=== PATIENT | female | born 1985 | race Caucasian/White ===

== ENCOUNTER → 2017-01-02 | Outpatient (CLI) | payer OTHER ==
[~2017-01-02] MED LIST: ACET-1311 PO; FLX10 PO; IBUP-1050 PO; LRT5 PO; PRENATA2 OR
--- NOTE | 2017-01-02 08:11 | DIAGNOSTIC IMAGING REPORT ---
FUSION CT SINUSES W/O CLINICAL HISTORY: 31 years-old Female presenting with J32.9 Chronic sinusitisPATIENT WITH RIGHT SEPTAL DEVIATION, LEFT. TECHNIQUE: Multidetector CT of the sinuses was performed without the use of intravenous contrast. IV contrast: None. A dose lowering technique was used consistent with the principles of ALARA (as low as reasonably achievable). COMPARISON: None. CT DOSE (mGy.cm): The estimated cumulative dose is 641.80 mGy.cm. FINDINGS: [employer] topogram: Unremarkable. Near-complete opacification of the left maxillary sinus. Mild mucosal thickening in the right maxillary sinus. Scattered mucosal thickening in anterior ethmoid air cells. Frontal and sphenoid sinuses largely clear. Mastoid air cells clear. No apparent sclerosis of the richardson of the maxillary sinuses to suggest chronic bony changes of sinusitis. No osseous erosion. Ostiomeatal units patent bilaterally, although mucosal thickening approaches the left ostiomeatal unit. Karuna bullosa of the middle turbinate noted on the left. Nasofrontal ethmoidal recesses narrowed by mucosal thickening in the ethmoid air cells. No bony dehiscence of the optic canals. Apparent thickening of the bilateral tympanic membranes. IMPRESSION: 1. Significant mucosal thickening most prominently in the left maxillary sinus and additional sinuses as above. No convincing evidence of acute or chronic sinusitis on the current exam. Minimal anatomic variants as above. Electronically signed by: Oni Castillo M.D. 01/02/2017 8:10 AM Dictated Date/Time: 01/02/2017 7:34 AM
== END | disposition home or self-care (01) ==
LOC: C.CTS 07:12
DX: J32.9 Chronic sinusitis, unspecified (principal)

== ENCOUNTER → 2017-03-05 | Outpatient (CLI) | payer OTHER ==
[~2017-03-05] MED LIST changes: -ACET-1311 PO; +EFF/375 PO; -FLX10 PO; -IBUP-1050 PO; +LORA-741 PO; +LORA10TA6 PO; -LRT5 PO; -PRENATA2 OR
[2017-03-05 16:07] LABS: BASO % 0.3 %; BASO ABS # 0.03 K/uL (0-0.2); COMPLETE YES; EOS % 4.7 %; HEMATOCRIT 40.8 % (37-47); IG% 0.2 %; LYMPH ABS # 2.48 K/uL (1.2-3.4); MEAN CELL VOLUME 86.3 fL (80-100); MEAN CORPUSCULAR HEMOGLOBIN 29.4 pg (25-34); MEAN CORPUSCULAR HGB CONC 34.1 g/dl (32-36); MEAN PLATELET VOLUME 9.9 fL (7.4-10.4); NEUT % 63.8 %; PLATELET COUNT 327 K/uL (130-400); RED BLOOD COUNT 4.73 M/uL (4.2-5.4); WHITE BLOOD COUNT 10.35 K/uL (4.8-10.8)
[2017-03-05 16:32] LABS: INR 0.9 (0.9-1.1); PROTHROMBIN TIME (PATIENT) 9.6 SECONDS (9.0-12.0)
[2017-03-05 16:44] LABS: POTASSIUM 3.6 mmol/L (3.5-5.1)
== END | disposition home or self-care (01) ==
LOC: C.LAB 15:23
DX: Z01.818 Encounter for other preprocedural examination (principal)

== ENCOUNTER → 2017-03-11 | Day surgery (SDC) | payer OTHER ==
[2017-02-22 08:54] VITALS: Ht 157.5 cm; Wt 81.8 kg
[~2017-03-11] VITALS: Ht 157.5 cm; Wt 81.8 kg
[~2017-03-11] MED LIST changes: +ATROPINE SULFATE 0.1 MG/ML 5ML SYR IV PRN; +CEFAZOLIN 2000MG IV PUSH 10 ML IV SCH; +DEXAMETHASONE SOD INJ 4 MG/ML VIAL ONE; +EpINEphrine INJ 1MG/ML AMP 1 MG/ML AMP ONE; +FENTANYL CITRATE INJ 50 MCG/1 ML 2 ML VIAL IV PRN; +FENTANYL CITRATE INJ 50 MCG/1 ML 2 ML VIAL ONE; +GLYCOPYRROLATE INJ 0.2 MG/ML VIAL ONE; +HYDROCODONE/ACETAMOPHEN 5/325MG TAB PO PRN; +LIDOCAINE 4% MPF SOAK 5 ML = 1 DOSE TOP ONE; +LIDOCAINE HCL 2% 2 ML VIAL (20MG/ML) ONE; +LIDOCAINE/EPINEPHRINE 1% INJ 50 ML VIAL ONE; +MIDAZOLAM HCL 1 MG/ML 2ML VIAL ONE; +NEOSTIGMINE METHYLSULFATE 5 MG/5 ML SYR ONE; +ONDANSETRON INJ 2 MG/ML 2 ML VIAL IV PRN; +ONDANSETRON INJ 2 MG/ML 2 ML VIAL ONE; +OXYMETAZOLINE HCL 0.05% NA SPR 15 ML BTL PRN; +OXYMETAZOLINE HCL 0.05% NA SPR 15 ML BTL SCH; +PROMETHAZINE HCL INJ 25 MG/ML 1 ML VIAL ONE; +PROMETHAZINE HCL INJ 6.25 MG in SODIUM CHLORIDE 0.9% 50ML 50 ML IV PRN; +PROPOFOL IV EMULSION 10 MG/ML 20 ML VIAL IV ONE; +SCOPOLAMINE 1.5 MG TDSY TD ONE
[2017-03-11] MEDS: LACTATED RINGER'S 1000ML 1,000 ML IV SCH ×2 (09:20→12:33)
--- NOTE | 2017-03-11 11:09 | History and Physical: Surg Cnt ---
History & Physical Date Mar 11, 2017. Chief Complaint CHRONIC SINUSITIS, SEPTAL DEVIATION, BILATERAL INFERIOR TURBINATE HYPERTROPHY History of Present Illness The patient is a 32 year old female with complaints of CHRONIC SINUSITIS, SEPTAL DEVIATION, BILATERAL INFERIOR TURBINATE HYPERTROPHY WITH SYMPTOMS DESPITE MAXIMAL MEDICAL THERAPY. Past Medical/Surgical History PMH: ABOVE, RECURRENT UTI'S PSH: S/P WISDOM TEETH EXTRACTION Additional History Hepatic Disease: No Endocrine Disorder: No Kidney Disease: No Hypertension: No Heart Disease: No Bleeding Tendencies: No Infectious Diseases: No Allergies Coded Allergies: Nickel (Verified Allergy, Unknown, SKIN IRRITATION WITH REDNESS AND ITCHING, 03/11/17) Sulfa Antibiotics (Verified Allergy, Unknown, FACIAL AND TONGUE SWELLING, 03/11/17) Home Medications Scheduled Loratadine (Claritin), 10 MG PO QPM Venlafaxine Hcl (Effexor), 37.5 MG PO QPM Scheduled PRN Lorazepam (Ativan), 0.5 MG PO Q6H PRN for Anxiety Physical Examination Skin: warm/dry, no rash Eyes: normal inspection, EOMI, sclerae normal ENT: + pertinent finding (MILD R DNS, MODERATE B ITH AND L MTH) Head: normocephalic, atraumatic Neck: supple, no adenopathy, trachea midline Respiratory/Chest: lungs clear, normal breath sounds, no respiratory distress Cardiovascular: regular rate, rhythm, no edema, no murmur Neurologic/Psych: no motor/sensory deficits, alert, normal reflexes, oriented x 3 Diagnosis CHRONIC SINUSITIS, SEPTAL DEVIATION, BILATERAL INFERIOR TURBINATE HYPERTROPHY Plan of Treatment IMAGE-GUIDED BILATERAL FESS AND INFERIOR TURBINATE REDUCTION, POSSIBLE SEPTOPLASTY
--- NOTE | 2017-03-11 12:06 | [facility] Operative Report ---
Operative Report Operative Date Mar 11, 2017. Pre-Operative Diagnosis Chronic Sinusitis, Septal Deviation, Bilateral Inferior Turbinate Hypertrophy Post-Operative Diagnosis same as preop Procedure(s) Performed Image Guided Bilateral Endoscopic Sinus Surgery, Bilateral Inferior Turbinate Reduction Surgeon Dr. Do Insulation Cupola Charger Surgeon(s) none Estimated Blood Loss 20ml Findings 1. VERY MILD RIGHT SEPTAL DEVIATION 2. MEDIUM-SIZED LEFT MARINA BULLOSA 3. LARGE LEFT MAXILLARY SINUS MUCUS RETENTION CYST WITH EXTENSION INTO NASAL CAVITY 4. MUCOSAL THICKENING INVOLVING BILATERAL MAXILLARY AND ETHMOID SINUSES WITH POLYPOID THICKENING OF THE ETHMOIDS Specimens A: Left Maxillary Sinus Contents I attest to the content of the Intraoperative Record and any orders documented therein. Any exceptions are noted below.
--- NOTE | 2017-03-11 12:09 | Discharge Instructions ---
Discharge Instructions Date of Service Mar 11, 2017. Admission Reason for Admission: Chronic Sinusitis, Nasal Septaladeviation, Hypertr Discharge Discharge Diagnosis / Problem: SAME Discharge Goals Goal(s): Therapeutic intervention Activity Recommendations Activity Limitations: as noted below 1. LIGHT ACTIVITY AND NO NOSE BLOWING FOR 2 WEEKS 2. NO DRIVING WHILE ON NORCO . Current Hospital Diet Patient's current hospital diet: Discharge Diet Recommended Diet: Regular Diet Procedures Procedures Performed: Image Guided Bilateral Endoscopic Sinus Surgery, Bilateral Inferior Turbinate Reduction Pending Studies Studies pending at discharge: no Medical Emergencies . Who to Call and When: Medical Emergencies: If at any time you feel your situation is an emergency, please call 911 immediately. . Non-Emergent Contact Non-Emergency issues call your: Surgeon . . "Provider Documentation" section prepared by Elder Do. . VTE Core Measure Inpt VTE Proph given/why not?: SCD's
--- NOTE | 2017-03-11 13:31 | OPERATIVE REPORT ---
DATE OF OPERATION: 03/11/2017 PREOPERATIVE DIAGNOSES: 1. Chronic rhinosinusitis. 2. Bilateral inferior turbinate hypertrophy. POSTOPERATIVE DIAGNOSES: 1. Chronic rhinosinusitis. 2. Bilateral inferior turbinate hypertrophy. PROCEDURES: Image guided bilateral endoscopic sinus surgery consisting of: 1. Left maxillary antrostomy with tissue removal. 2. Right maxillary antrostomy. 3. Bilateral complete ethmoidectomy. 4. Endoscopic left martine bullosa resection. 5. Bilateral inferior turbinate outfracture and turbinoplasty. SURGEON: Dr. Elder Do. ANESTHESIA: General endotracheal. ESTIMATED BLOOD LOSS: 20 mL. FINDINGS: 1. Moderate sized left martine bullosa. 2. Likely left maxillary sinus mucous retention cyst with portion of the cyst/polyp emanating through the maxillary and ostium into the nasal cavity posteriorly. 3. Polypoid mucosal thickening involving the bilateral ethmoid sinuses. 4. Mild mucosal thickening involving the right maxillary sinus. 5. Very mild right septal deviation. 6. Moderate bilateral inferior turbinate hypertrophy. SPECIMENS: Left maxillary sinus contents for permanent pathological assessment. COMPLICATIONS: None. INDICATIONS FOR THE PROCEDURE: The patient is a 32-year-old female with a history of chronic sinusitis which has been unresponsive to maximum medical therapy including systemic antibiotics and steroids. In addition, she states that when she sleeps at night and lying flat, she notices that something within the left nasal cavity will "ball valve" in and out and interfere with her sleep quality and cause nasal airway obstruction. She complains of nasal airway obstruction and has moderate bilateral inferior turbinate hypertrophy, but also a very mild right septal deviation which appears nonobstructive. She presents for the above-mentioned procedure on an outpatient elective basis. DESCRIPTION OF PROCEDURE: After informed consent had been obtained from the patient, the patient was wheeled to the operating room and placed on the operating table in the supine position. Monitors were placed. After induction of general endotracheal anesthesia, the patient was prepped in the usual fashion for endoscopic sinus surgery. The iAdvize headset was placed over the forehead and was registered, verified, and calibrated and used for the throughout the case. Lidocaine and epinephrine pledgets were placed in the bilateral middle meati and pressure applied. The left-sided pledgets were first removed. A 0 degree endoscope was used to inspect the left nasal cavity. There appeared to be a polypoid mass emanating from the left maxillary sinus and extending posteriorly into the nasopharynx. This mass was injected with 1% lidocaine with 1:100,000 epinephrine. The left middle turbinate and lateral nasal wall were also injected. The right middle turbinate and lateral nasal wall were then also injected with 1% lidocaine with 1:100,000 epinephrine. Lidocaine and epinephrine pledgets were placed in the bilateral middle meati. The left side pledgets were removed. A straight Von-Cut forceps was used to remove the nasal cavity portion of the left maxillary sinus mass and this was sent off for permanent pathological assessment. A sickle knife was used to incise the left middle turbinate longitudinally and the lateral half of the middle turbinate was removed using straight Von-Cut forceps and powered instrumentation. An uncinatectomy was then performed using a freer elevator, straight Von-Cut forceps, and powered instrumentation. The patient's left maxillary sinus ostium was then enlarged anteriorly, inferiorly, posteriorly using backbiting forceps and powered instrumentation. There was a large mucous retention cyst that was within the left maxillary sinus, which was removed using a straight Blakesley forceps. This was sent off for permanent pathological assessment. Care was taken to remove all of the cyst wall and contents. A complete ethmoidectomy was then performed using powered instrumentation. Lidocaine and epinephrine pledget was then placed into the left ethmoid cavity. The right side was then addressed. On this side, there was no martine bullosa. Therefore, right maxillary antrostomy and complete ethmoidectomy was performed. There was mild mucosal thickening involving the right maxillary sinus and there was polypoid mucosal thickening involving the bilateral ethmoid sinuses. Sinonasal cavities were then suctioned. Merogel was placed into the bilateral ethmoid sinuses/middle meati. A Parks elevator was then used to infracture and subsequently outfracture the inferior turbinates bilaterally. Inferior turbinates were injected with 1% lidocaine with 1:100,000 epinephrine. A 2.0 mm turbinate blade using powered instrumentation was then used to perform bilateral inferior turbinoplasties in a submucosal fashion. The sinonasal cavities and nasopharynx were then suctioned. An orogastric tube was placed and the stomach was suctioned free of air and stomach contents. This marked the end of the case. The patient tolerated the procedure well. There were no apparent complications. The patient was extubated and transferred to recovery room in stable condition. I attest to the content of the Intraoperative Record and any orders documented therein. Any exception s are noted below.
[2017-03-11 13:47] VITALS: BP 118/65; PULSE 62; TEMP 36.6; O2SAT 98
--- NOTE | 2017-03-11 14:02 | Anesthesia Progress Nt - [facility] ---
Anesthesia Post Op Note Date & Time Mar 11, 2017 at 14:02 Vital Signs Pain Intensity: 0 Vital Signs Past 12 Hours Date Time Temp Pulse Resp B/P (MAP) Pulse Ox O2 Delivery O2 Flow Rate FiO2 03/11/17 13:47 36.6 62 16 118/65 (82) 98 Room Air 03/11/17 13:24 71 16 119/81 (94) 97 Room Air 03/11/17 13:16 111/78 03/11/17 13:15 82 15 03/11/17 13:15 90 15 96 03/11/17 13:13 36.5 67 16 111/78 97 Room Air 03/11/17 13:11 122/72 03/11/17 13:10 62 15 95 03/11/17 13:10 62 15 03/11/17 13:06 119/80 03/11/17 13:05 73 15 96 03/11/17 13:05 72 15 03/11/17 13:01 126/83 03/11/17 13:00 96 25 98 03/11/17 13:00 96 25 03/11/17 12:56 110/71 03/11/17 12:55 69 15 03/11/17 12:55 68 15 94 03/11/17 12:52 119/79 03/11/17 12:50 88 22 93 03/11/17 12:50 88 22 03/11/17 12:46 124/81 03/11/17 12:45 91 14 03/11/17 12:45 91 14 94 03/11/17 12:42 135/64 03/11/17 12:40 76 22 03/11/17 12:40 77 22 97 03/11/17 12:36 118/72 03/11/17 12:35 77 22 98 03/11/17 12:35 77 22 03/11/17 12:31 123/76 03/11/17 12:30 75 25 97 03/11/17 12:30 77 25 03/11/17 12:27 130/92 03/11/17 12:25 97 18 03/11/17 12:25 97 18 98 03/11/17 12:21 137/85 03/11/17 12:20 106 24 97 03/11/17 12:20 106 24 03/11/17 12:16 139/68 03/11/17 12:15 124 98 03/11/17 12:15 124 03/11/17 12:15 36.2 120 16 139/68 98 Mask 6 03/11/17 09:00 36.7 96 20 121/85 (97) 96 Room Air Notes Mental Status: alert / awake / arousable, participated in evaluation Pt Amnestic to Procedure: Yes Nausea / Vomiting: adequately controlled Pain: adequately controlled Airway Patency, RR, SpO2: stable & adequate BP & HR: stable & adequate Hydration State: stable & adequate Anesthetic Complications: no major complications apparent
== END | disposition home or self-care (01) ==
LOC: X.SURG 08:47
DX: J32.9 Chronic sinusitis, unspecified (principal); J34.3 Hypertrophy of nasal turbinates; J34.2 Deviated nasal septum; F32.9 Major depressive disorder, single episode, unspecified; F41.9 Anxiety disorder, unspecified; E66.9 Obesity, unspecified; Z68.32 Body mass index [BMI] 32.0-32.9, adult; Z79.899 Other long term (current) drug therapy

== ENCOUNTER 2017-06-17 11:20 | Emergency (ER) | payer OTHER ==
[~2017-06-17] VITALS: Ht 154.9 cm; Wt 85.8 kg
[~2017-06-17 11:20] MED LIST changes: -ATROPINE SULFATE 0.1 MG/ML 5ML SYR IV PRN; -CEFAZOLIN 2000MG IV PUSH 10 ML IV SCH; -DEXAMETHASONE SOD INJ 4 MG/ML VIAL ONE; -EpINEphrine INJ 1MG/ML AMP 1 MG/ML AMP ONE; -FENTANYL CITRATE INJ 50 MCG/1 ML 2 ML VIAL IV PRN; -FENTANYL CITRATE INJ 50 MCG/1 ML 2 ML VIAL ONE; -GLYCOPYRROLATE INJ 0.2 MG/ML VIAL ONE; -HYDROCODONE/ACETAMOPHEN 5/325MG TAB PO PRN; -LIDOCAINE 4% MPF SOAK 5 ML = 1 DOSE TOP ONE; -LIDOCAINE HCL 2% 2 ML VIAL (20MG/ML) ONE; -LIDOCAINE/EPINEPHRINE 1% INJ 50 ML VIAL ONE; -MIDAZOLAM HCL 1 MG/ML 2ML VIAL ONE; -NEOSTIGMINE METHYLSULFATE 5 MG/5 ML SYR ONE; -ONDANSETRON INJ 2 MG/ML 2 ML VIAL IV PRN; -ONDANSETRON INJ 2 MG/ML 2 ML VIAL ONE; -OXYMETAZOLINE HCL 0.05% NA SPR 15 ML BTL PRN; -OXYMETAZOLINE HCL 0.05% NA SPR 15 ML BTL SCH; -PROMETHAZINE HCL INJ 25 MG/ML 1 ML VIAL ONE; -PROMETHAZINE HCL INJ 6.25 MG in SODIUM CHLORIDE 0.9% 50ML 50 ML IV PRN; -PROPOFOL IV EMULSION 10 MG/ML 20 ML VIAL IV ONE; -SCOPOLAMINE 1.5 MG TDSY TD ONE
[2017-06-17 11:31] VITALS: TEMP 36.7; Ht 154.9 cm; Wt 85.8 kg
[2017-06-17] MEDS ORDERED: SODIUM CHLORIDE 0.9% 1000ML 1,000 ML IV STA (12:31)
[2017-06-17] MEDS ORDERED: LORAZEPAM 2 MG/ML 1 ML VIAL IV STA (12:31)
[2017-06-17 12:41] LABS: BASO % 0.5 %; BASO ABS # 0.04 K/uL (0-0.2); EOS % 6.6 %; EOS ABS # 0.57 K/uL (0-0.5); HEMOGLOBIN 14.6 g/dL (12.0-16.0); IG# 0.04 K/uL (0.00-0.02); LYMPH % 23.2 %; MEAN CELL VOLUME 85.5 fL (80-100); MEAN CORPUSCULAR HEMOGLOBIN 29.7 pg (25-34); MEAN CORPUSCULAR HGB CONC 34.8 g/dl (32-36); MEAN PLATELET VOLUME 10.2 fL (7.4-10.4); MONO % 5.1 %; MONO ABS # 0.44 K/uL (0.11-0.59); NEUT % 64.1 %; NEUT ABS # 5.53 K/uL (1.4-6.5); PLATELET COUNT 384 K/uL (130-400); RED CELL DISTRIBUTION WIDTH CV 12.5 % (11.5-14.5); WHITE BLOOD COUNT 8.62 K/uL (4.8-10.8)
[2017-06-17 12:46] LABS: ALBUMIN 3.8 gm/dl (3.4-5.0); ALT/SGPT 27 U/L (12-78); BLOOD UREA NITROGEN 12 mg/dl (7-18); CALCIUM 8.7 mg/dl (8.5-10.1); CARBON DIOXIDE 25 mmol/L (21-32); CREATININE 0.85 mg/dl (0.60-1.20); GLUCOSE 89 mg/dl (70-99); LIPASE 120 U/L (73-393); POTASSIUM 3.5 mmol/L (3.5-5.1); SODIUM 138 mmol/L (136-145)
[2017-06-17 12:52] LABS: ALKALINE PHOSPHATASE 76 U/L (45-117); AST/SGOT 13 U/L (15-37); CKMB 0.8 ng/ml (0.5-3.6); TOTAL PROTEIN 7.8 gm/dl (6.4-8.2)
--- NOTE | 2017-06-17 12:55 | DIAGNOSTIC IMAGING REPORT ---
CHEST ONE VIEW PORTABLE CLINICAL HISTORY: Chest pain. Chest tightness. COMPARISON STUDY: No previous studies for comparison. FINDINGS: Lung volumes are normal. There is no pneumothorax or pleural effusion. There is no evidence for pulmonary edema. Cardiac size is normal. Mediastinal contours are normal. IMPRESSION: No acute cardiopulmonary findings. Electronically signed by: Mil Roepr M.D. 06/17/2017 12:54 PM Dictated Date/Time: 06/17/2017 12:54 PM
[2017-06-17 13:04] LABS: ISTAT CREATININE 0.8 mg/dl (0.6-1.3); ISTAT IONIZED CALCIUM 1.14 mmol/l (1.12-1.32); ISTAT POTASSIUM 3.5 mEq/L (3.3-5.0)
[2017-06-17 13:14] VITALS: O2SAT 97
[2017-06-17 14:01] VITALS: BP 114/79; PULSE 91; O2SAT 99
--- NOTE | 2017-06-17 14:05 | EMERGENCY ROOM VISIT NOTE ---
History Report prepared by Jose: Bárbara Cerda Under the Supervision of: Dr. Jr Verma M.D. First contact with patient: 12:03 Chief Complaint: CHEST PAIN Stated Complaint: RACING HEART, CHEST TIGHTNESS Nursing Triage Summary: Dull L sided chest pain and SOB since last night, pt states that it is from anxiety, took ativan last night, states that it did not really help, but that she was able to sleep. Pt was working today when chest pain and SOB started again, pt denies taking ativan or anything for pain today. Pt denies SOB at present, denies nausea, diaphoresis, dizziness, syncope last night or today. Pt rating pain as 3/10 and states that it is dull. History of Present Illness The patient is a 32 year old female who presents to the Emergency Room with complaints of persistent chest pain starting last night. She started feeling SOB with chest pain last night. She took Ativan which relieved her SOB. She woke up this morning still having the chest pain. She also had some SOB and palpitations today. She currently does not have any SOB or palpitations. She does have a dull ache in her chest. She denies any abdominal pain. She is not on control. She denies any chance of . She is currently on her period. She denies any chance of a retained tampon. Source of History: patient Onset: last night Position: chest Quality: ache, dull Timing: other (persistent) Associated Symptoms: + SOB, No abdominal pain Note: Pt reports palpitations. Review of Systems See HPI for pertinent positives & negatives. A total of 10 systems reviewed and were otherwise negative. Past Medical & Surgical Medical Problems: (1) Anxiety Family History Cancer Diabetes mellitus Heart disease Hypertension Lung disease Social History Smoking Status: Never Smoker Alcohol Use: occasionally Marital Status: Housing Status: lives with significant other Current/Historical Medications No Active Prescriptions or Reported Meds Allergies Coded Allergies: Nickel (Verified Allergy, Unknown, SKIN IRRITATION WITH REDNESS AND ITCHING, 03/11/17) Sulfa Antibiotics (Verified Allergy, Unknown, FACIAL AND TONGUE SWELLING, 03/11/17) Physical Exam Vital Signs Date Time Temp Pulse Resp B/P (MAP) Pulse Ox O2 Delivery O2 Flow Rate FiO2 06/17/17 14:01 91 14 114/79 99 06/17/17 13:31 94 14 121/74 99 06/17/17 13:14 97 Room Air 06/17/17 13:14 97 Room Air 06/17/17 13:07 90 12 130/80 98 06/17/17 12:59 89 16 119/78 99 06/17/17 12:18 91 06/17/17 11:31 36.7 116 18 130/86 98 Room Air Physical Exam GENERAL: Awake, alert, well-appearing, in no acute distress HENT: Normocephalic, atraumatic. Oropharynx unremarkable. EYES: Normal conjunctiva. Sclera non-icteric. NECK: Supple. No nuchal rigidity. FROM. No JVD. RESPIRATORY: Clear to auscultation. CARDIAC: Regular rate, normal rhythm. Extremities warm and well perfused. Pulses equal. ABDOMEN: Soft, non-distended. No tenderness to palpation. No rebound or guarding. No masses. RECTAL: Deferred. MUSCULOSKELETAL: Chest examination reveals no tenderness. The back is symmetrical on inspection without obvious abnormality. There is no CVA tenderness to palpation. No joint edema. LOWER EXTREMITIES: Calves are equal size bilaterally and non-tender. No edema. No discoloration. NEURO: Normal sensorium. No sensory or motor deficits noted. SKIN: No rash or jaundice noted. Medical Decision & Procedures ER Provider Diagnostic Interpretation: X-ray results as stated below per interpretation by me and the radiologist: CHEST ONE VIEW PORTABLE CLINICAL HISTORY: Chest pain. Chest tightness. COMPARISON STUDY: No previous studies for comparison. FINDINGS: Lung volumes are normal. There is no pneumothorax or pleural effusion. There is no evidence for pulmonary edema. Cardiac size is normal. Mediastinal contours are normal. IMPRESSION: No acute cardiopulmonary findings. Electronically signed by: Mil Roper M.D. 06/17/2017 12:54 PM Dictated Date/Time: 06/17/2017 12:54 PM Laboratory Results 06/17/17 11:40 Red Blood Count 4.91, Mean Corpuscular Volume 85.5, Mean Corpuscular Hemoglobin 29.7, Mean Corpuscular Hemoglobin Concent 34.8, Mean Platelet Volume 10.2, Neutrophils (%) (Auto) 64.1, Lymphocytes (%) (Auto) 23.2, Monocytes (%) (Auto) 5.1, Eosinophils (%) (Auto) 6.6, Basophils (%) (Auto) 0.5, Neutrophils # (Auto) 5.53, Lymphocytes # (Auto) 2.00, Monocytes # (Auto) 0.44, Eosinophils # (Auto) 0.57, Basophils # (Auto) 0.04 06/17/17 11:40 Test 06/17/17 11:40 06/17/17 12:50 White Blood Count 8.62 K/uL (4.8-10.8) Red Blood Count 4.91 M/uL (4.2-5.4) Hemoglobin 14.6 g/dL (12.0-16.0) Hematocrit 42.0 % (37-47) Mean Corpuscular Volume 85.5 fL (80-100) Mean Corpuscular Hemoglobin 29.7 pg (25-34) Mean Corpuscular Hemoglobin Concent 34.8 g/dl (32-36) Platelet Count 384 K/uL (130-400) Mean Platelet Volume 10.2 fL (7.4-10.4) Neutrophils (%) (Auto) 64.1 % Lymphocytes (%) (Auto) 23.2 % Monocytes (%) (Auto) 5.1 % Eosinophils (%) (Auto) 6.6 % Basophils (%) (Auto) 0.5 % Neutrophils # (Auto) 5.53 K/uL (1.4-6.5) Lymphocytes # (Auto) 2.00 K/uL (1.2-3.4) Monocytes # (Auto) 0.44 K/uL (0.11-0.59) Eosinophils # (Auto) 0.57 K/uL (0-0.5) Basophils # (Auto) 0.04 K/uL (0-0.2) RDW Standard Deviation 39.0 fL (36.4-46.3) RDW Coefficient of Variation 12.5 % (11.5-14.5) Immature Granulocyte % (Auto) 0.5 % Immature Granulocyte # (Auto) 0.04 K/uL (0.00-0.02) Est Creatinine Clear Calc Drug Dose 95.3 ml/min Estimated GFR () 105.8 Estimated GFR (Non- 91.3 BUN/Creatinine Ratio 13.5 (10-20) Calcium Level 8.7 mg/dl (8.5-10.1) Total Bilirubin 0.3 mg/dl (0.2-1) Direct Bilirubin < 0.1 mg/dl (0-0.2) Aspartate Amino Transf (AST/SGOT) 13 U/L (15-37) Alanine Aminotransferase (ALT/SGPT) 27 U/L (12-78) Alkaline Phosphatase 76 U/L (45-117) Total Creatine Kinase 77 U/L (26-192) Creatine Kinase MB 0.8 ng/ml (0.5-3.6) Creatine Kinase MB Ratio 1.0 (0-3.0) Troponin I < 0.015 ng/ml (0-0.045) Total Protein 7.8 gm/dl (6.4-8.2) Albumin 3.8 gm/dl (3.4-5.0) Lipase 120 U/L (73-393) Human Chorionic Gonadotropin, Qual NEG (NEG) Bedside Hemoglobin 14.3 g/dl (12.0-16.0) Bedside Hematocrit 42 % (37-47) Bedside Sodium 142 mEq/L (135-144) Bedside Potassium 3.5 mEq/L (3.3-5.0) Bedside Chloride 103 mEq/L (101-112) Bedside Total CO2 26 mEq/l (24-31) Anion Gap 17.0 mmol/L (16-25) Bedside Blood Urea Nitrogen 11 mg/dl (7-18) Bedside Creatinine 0.8 mg/dl (0.6-1.3) Bedside Glucose (other) 90 mg/dl (70-99) Bedside Ionized Calcium (Velvte) 1.14 mmol/l (1.12-1.32) Labs reviewed by ED physician. Medications Administered Medications (Trade) Dose Ordered Sig/[facility] Route Start Time Stop Time Status Last Admin Dose Admin Sodium Chloride 1,000 ml @ 999 mls/hr Q1H1M STAT IV 06/17/17 12:31 06/17/17 13:31 DC 06/17/17 12:57 999 MLS/HR Lorazepam (Ativan Inj) 1 mg NOW STAT IV 06/17/17 12:31 06/17/17 12:33 DC 06/17/17 13:04 1 MG ECG Per My Interpretation Indication: chest pain Rate (beats per minute): 103 Rhythm: sinus tachycardia Findings: other (normal intervals, no ST elevation or depression) ED Course 1228: Past medical records reviewed. The patient was evaluated in room C4. A complete history and physical examination was performed. 1231: Ativan Inj 1 mg IV, NSS 1000 ml @ 999 mls/hr IV. 1322: Upon reexamination the patient is feeling better. I discussed results and treatment plan with the patient. She verbalizes agreement and understanding. The patient is ready for discharge. Medical Decision Differential diagnosis: Etiologies such as cardiac ischemia, aortic dissection, pulmonary embolism, pneumonia, pneumothorax, musculoskeletal, infections, pericarditis, myocarditis , esophageal rupture, gastrointestinal, as well as others were entertained. This is a 32-year-old female who presents emergency department complaining of chest pain and palpitations. Patient feels like her heart is racing although it is normal here. She has a negative d-dimer her EKG is also normal. Patient also has normal cardiac enzymes including CK-MB and troponin. As the patient's symptoms have been ongoing since last evening I would expect her troponin to be elevated. As such they are not. Based on these findings I feel the patient can be safely discharged home to follow-up with cardiology. Patient was in agreement with treatment plan. Medication Reconcilliation Current Medication List: was personally reviewed by me Blood Pressure Screening Patient's blood pressure: Normal blood pressure Blood pressure disposition: Did not require urgent referral Impression Primary Impression: Chest pain Scribe Attestation The scribe's documentation has been prepared under my direction and personally reviewed by me in its entirety. I confirm that the note above accurately reflects all work, treatment, procedures, and medical decision making performed by me. Departure Information Dispostion Home / Self-Care Prescriptions No Active Prescriptions or Reported Meds Referrals Yakelin Asencio, (PCP) Tigre Randle M.D. Forms Call Back Authorization, HOME CARE DOCUMENTATION FORM, IMPORTANT VISIT INFORMATION Patient Instructions Chest Pain - [facility], [facility] Additional Instructions Follow up with Dr Randle's office You have been examined and treated today on an emergency basis only. This is not a substitute for, or an effort to provide, complete comprehensive medical care. It is impossible to recognize and treat all injuries or illnesses in a single emergency department visit. It is therefore important that you follow up closely with Dr Asencio. Call as soon as possible for an appointment. Thank you for your time and consideration. I look forward to speaking with you again soon. Please don't hesitate to call us if you have any questions. Problem Qualifiers Primary Impression: Chest pain Chest pain type: unspecified Qualified Codes: R07.9 - Chest pain, unspecified
== END 2017-06-17 14:09 | disposition home or self-care (01) ==
LOC: C.EDB 11:21 → C.EDC 14:09
DX: R07.9 Chest pain, unspecified (principal); Z91.048 Other nonmedicinal substance allergy status; Z88.2 Allergy status to sulfonamides; Z83.3 Family history of diabetes mellitus; Z82.49 Family history of ischemic heart disease and other diseases of the circulatory system; Z83.6 Family history of other diseases of the respiratory system